=== PATIENT | female | born 1945 | race Caucasian/White ===

== ENCOUNTER 2017-02-14 06:04 | Day surgery (SDC) | payer OTHER ==
[2017-02-11 10:36] LABS: BASOPHILS 0.4 %; BASOPHILS ABSOLUTE 0.03 10/3/uL (0.0-0.16); EOSINOPHILS 3.2 %; EOSINOPHILS ABSOLUTE 0.24 10/3/uL (0.0-0.53); HEMATOCRIT 41.1 % (36.0-48.0); HEMOGLOBIN 13.8 g/dL (12.0-16.0); IMMATURE GRANULOCYTES 0.1 %; IMMATURE GRANULOCYTES ABSOLUTE 0.01 10/3/uL (0.0-0.11); LYMPHOCYTES 31.6 %; LYMPHOCYTES ABSOLUTE 2.37 10/3/uL (0.67-4.30); MEAN CORPUS HGB CONC 33.6 g/dL (32.0-36.0); MEAN CORPUSCULAR HEMOGLOB 30.7 pg (26.0-34.0); MEAN PLATELET VOLUME 10.1 fL (9.2-13.0); MONOCYTES 8.4 %; MONOCYTES ABSOLUTE 0.63 10/3/uL (0.21-1.20); NEUTROPHILS 56.3 %; NEUTROPHILS ABSOLUTE 4.23 10/3/uL (2.02-8.40); PLATELET COUNT 314 10/3/uL (150-400); RBC DISTRIBUTION WIDTH 16.2 % (12.0-16.0); RED CELL COUNT 4.49 10/6/uL (4.0-5.6); WHITE BLOOD CELLS 7.5 10/3/uL (4.5-10.5)
[2017-02-11 10:37] LABS: MANUAL DIFF NO %; MEAN CORPUSCULAR VOLUME 91.5 fL (80-100)
[2017-02-11 10:39] LABS: PROTIME (NOT ORD) 12.6 SEC (12.0-14.5)
[2017-02-11 11:09] LABS: ALKALINE PHOSPHATASE 140 U/L (45-117); BUN (BLOOD UREA NITROGEN) 14 MG/DL (6-23); CALCIUM, SERUM 9.5 MG/DL (8.5-10.4); CHLORIDE, SERUM 105 MMOL/L (96-112); CO2 (CARBON DIOXIDE) 31 MMOL/L (24-34); CREATININE 0.91 MG/DL (0.55-1.02); GFR AFRICAN AMERICAN 74 ML/MIN (>=60); GFR NON AFRICAN AMERICAN 64 ML/MIN (>=60); GLOBULIN 3.9 G/DL (2.5-4.1); GLUCOSE, SERUM 60 MG/DL (60-99); POTASSIUM, SERUM 4.1 MMOL/L (3.5-5.3); SGOT(AST) 11 U/L (5-40); SGPT(ALT) 23 U/L (5-65); SODIUM, SERUM 143 MMOL/L (135-148); TOTAL BILIRUBIN 0.2 MG/DL (0-1.2); TOTAL PROTEIN 7.9 G/DL (6.0-8.5)
[2017-02-11 12:22] LABS: ASCORBIC ACID (UR NOT ORDER) NEG (NEG); BILIRUBIN, URINE NEGATIVE (NEG); KETONE, URINE NEGATIVE (NEG); LEUKOCYTE ESTERASE(NOT OR LARGE (NEG); WBC (NOT ORDERED) (RFLEX) 49 (0-5)
--- NOTE | ~2017-02-14 | OP ---
Record Of Operation [facility] [address] [place]. [address] NAME: DAT ROSENBERG : 47 STATUS : [facility]#: [id number] AGE: 71 ADM/REG DATE : 02/14/17 MR#: [id number] REPORT SERV DATE: 02/19/17 DICTATED BY: CAIO NGUYEN DATE: 02/19/17 REPORT STATUS : Draft TRANSCRIBED BY: MODL DATE: 02/19/17 DATE OF PROCEDURE: 02/14/2017 PREOPERATIVE DIAGNOSIS: Right knee heterotopic ossification. POSTOPERATIVE DIAGNOSIS: Right knee heterotopic ossification. PROCEDURE: Right knee arthrotomy, resect heterotopic ossification, and synovectomy. SURGEON: Jorge Nguyen M.D. GOLF CADDIE: See chart. DESCRIPTION OF PROCEDURE: The patient was taken to the operating room and placed supine on the table in normal fashion without an incident. General anesthetic was induced per the anesthesiologist. The patient was carefully positioned, padded, prepped, and draped in normal sterile fashion. Right lower extremity was exsanguinated. Tourniquet inflated to 350. Sharp dissection was made through the old incision with electrocautery through the fat. Sharp quad splitting approach was carried out. Patella subluxed. A near-subtotal synovectomy was performed. A large bony prominence was found in the supracondylar femur. It was resected with electrocautery and rongeur. I carefully palpated to be sure there was no further stone formation. Wound was copiously irrigated, packed with bone wax, and closed in layered fashion. COMPLICATIONS: None. SPECIMENS: None, except for resected bone. BLOOD LOSS: Trace. WTB/MODL Jorge Nguyen M.D. / [id number] CC: Amadeo Garner Vickie
[~2017-02-14 06:04] MED LIST: ALBUTEROL0.63 MG/3 INH; ASAB PO; C5; CLARIT10 PO; CRANBERRY300 MG PO; DIMETAPP120 MG PO; IBU800 PO; ISOPTIN SR120 MG PO; ISOPTIN SR240 MG PO; MCZ25 PO; MUCINEX CGH1 ML PO; MULTIVIT/MIN PO; OS500+D PO; PROTONIX PO; RESTORIL30 MG PO; TESSALON200 MG PO; ULTRAM50 PO; VENTOLIN HFA INH; Z300 PO; ZYRTEC ALLGY10 MG PO
== END 2017-02-14 17:09 | disposition home or self-care (01) ==
LOC: SDC 06:04
PROVIDERS: Specialist
PROC: 0SBC0ZZ Excision of Right Knee Joint, Open Approach (ICD-10-PCS; principal; 2017-02-14 06:45)
DX: M61.9 Calcification and ossification of muscle, unspecified (principal); I10 Essential (primary) hypertension; Z47.1 Aftercare following joint replacement surgery; Z88.1 Allergy status to other antibiotic agents; Z88.2 Allergy status to sulfonamides; Z88.5 Allergy status to narcotic agent; Z88.8 Allergy status to other drugs, medicaments and biological substances; F41.9 Anxiety disorder, unspecified; M19.90 Unspecified osteoarthritis, unspecified site; E78.00 Pure hypercholesterolemia, unspecified; K21.9 Gastro-esophageal reflux disease without esophagitis; J45.909 Unspecified asthma, uncomplicated; J44.9 Chronic obstructive pulmonary disease, unspecified; J42 Unspecified chronic bronchitis; Z90.49 Acquired absence of other specified parts of digestive tract; F17.210 Nicotine dependence, cigarettes, uncomplicated
CPT/HCPCS: 71020; 80053; 81001; 82962; 85025; 85610; 87086; 88304; 88311; 93005; J0690; J1885; J2250; J2270; J2274; J2405; J2795; J3010